=== PATIENT | male | born 1950 | race Two or more races ===

== ENCOUNTER 2018-06-28 07:12 | Day surgery (SDC) | payer OTHER | END 2018-06-28 09:50 | disposition home or self-care (01) | LOC: AMB-ENDOS 07:12 | DX: D12.0 Benign neoplasm of cecum (principal); K64.0 First degree hemorrhoids ==

== ENCOUNTER 2018-07-29 11:45 | Inpatient (IN) | payer OTHER ==
[~2018-07-29] VITALS: Ht 154.9 cm; Wt 70.3 kg
[2018-07-29] MEDS ORDERED: OMEPRAZOLE40 MG PO (14:15)
[2018-07-29] MEDS ORDERED: DILTIAZEM 24HR360 MG PO (14:15)
[2018-07-29] MEDS ORDERED: [UNRECOGNIZED DRUG - OTHER] PO (14:15)
[2018-07-29] MEDS ORDERED: CARDURA XL4 MG PO (14:16)
[2018-07-29] MEDS ORDERED: [UNRECOGNIZED DRUG - OTHER] PO (14:18)
[2018-07-29] MEDS ORDERED: CARDESARTAN PO (14:19)
[2018-07-29] MEDS ORDERED: CLONIDINE HCL0.2 MG PO (14:20)
[2018-07-29] MEDS ORDERED: HYDRALAZINE HCL50 MG PO (14:20)
[2018-08-03] MEDS ORDERED: ATACAND32 MG PO (09:49)
[2018-08-06] MEDS ORDERED: PERCOCET 5-3251 EACH PO (12:23)
[2018-08-06] MEDS ORDERED: OMEPRAZOLE20 MG PO (12:23)
== END 2018-08-06 12:56 | disposition home or self-care (01) | DRG 330 ==
LOC: EDSEX 08-02 14:50 → MEDJ 08-02 14:50 → SURG 08-02 14:50 → SURH 08-03 10:45 → SURG 08-03 11:14 → SURH 08-03 11:45 → SURG 08-06 12:56
PROVIDERS: Surgery; ADMIT Specialist
PROC: 07TB4ZZ Resection of Mesenteric Lymphatic, Percutaneous Endoscopic Approach (ICD-10-PCS; 2018-08-03)
PROC: 0DTF4ZZ Resection of Right Large Intestine, Percutaneous Endoscopic Approach (ICD-10-PCS; principal; 2018-08-03 10:45)
DX: C18.0 Malignant neoplasm of cecum (principal); D62 Acute posthemorrhagic anemia; Z92.25 Personal history of immunosuppression therapy; I13.10 Hypertensive heart and chronic kidney disease without heart failure, with stage 1 through stage 4 chronic kidney disease, or unspecified chronic kidney disease; N18.2 Chronic kidney disease, stage 2 (mild)